=== PATIENT | female | born 1955 | race American Indian/Alaskan Native ===

== ENCOUNTER 2017-04-10 12:44 | Emergency (ER) | payer MEDICARE ==
[2017-04-10 12:58] VITALS: BP 134/60
--- NOTE | 2017-04-10 14:19 | Emergency Department Report ---
Chief Complaint: Neck Pain/Injury Stated Complaint: LUMP ON NECK Time Seen by Provider: 04/10/17 14:11 - HPI History of Present Illness: Patient is a 61-year-old Afro-[place] female who is presenting with a right neck swelling. Patient states that 2 days prior to today she was eating breakfast andthat she was having difficulty swallowing solids. She is able to swallow liquids fine. Patient denies any sore throat fever recent cough congestion. Patient also has not had any recent dental work. Patient states that she does feel some swelling and a nodule or "knot" on the right neck - ROS Review of Systems: Review of systems negative except for those elements in HPI - Exam Vital Signs: Vital Signs 04/10/17 12:55 Temperature 99.0 F Pulse Rate 99 H Respiratory 18 Rate Blood Pressure 134/60 O2 Sat by Pulse 98 Oximetry Physical Exam: Focused physical exam patient has some fullness in the submandibular space on the right side there is minimal tenderness of the sublingual space appears normal there is no swelling oropharynx appears clear MSE screening note: Focused history and physical exam performed. Due to findings the following was ordered: Patient will undergo a CT of the soft tissue neck to rule out abscess versus lymphadenopathy versus hematoma versus glandular infection ED Disposition for MSE Condition: Stable Referrals: MONTY TAYLOR MD [Primary Care Provider] - 3-5 Days
[2017-04-10 15:02] LABS: Basophils % (Auto) 0.7 % (0.0-1.8); Eosinophils % (Auto) 2.8 % (0.0-4.3); Hematocrit 35.1 % (30.3-42.9); Hemoglobin 11.6 gm/dl (10.1-14.3); Mean Corpuscular HGB Conc 33 % (30-34); Mean Corpuscular Hemoglobin 29 pg (28-32); Mean Corpuscular Volume 88 fl (79-97); Platelet Count 256 K/mm3 (140-440); Red Cell Distribution Width 15.2 % (13.2-15.2); White Blood Count 3.5 K/mm3 (4.5-11.0)
[2017-04-10 15:06] LABS: BUN/Creatinine Ratio 23; Blood Urea Nitrogen 18 mg/dL (7-17); Calcium 9.8 mg/dL (8.4-10.2); Carbon Dioxide 30 mmol/L (22-30); Glucose 198 mg/dL (65-100)
[2017-04-10 15:07] LABS: Anion Gap 17 mmol/L; Chloride 95.1 mmol/L (98-107); Potassium 3.8 mmol/L (3.6-5.0); Sodium 138 mmol/L (137-145)
--- NOTE | 2017-04-10 15:28 | Cat Scan Report ---
CT of the neck without contrast. History: Right submandibular swelling. Findings: The study of the neck is limited without intravenous contrast it is also limited due to patient's body habitus. The parotid and submandibular glands appear normal in size and configuration. A few small nodes are seen in the submandibular region bilaterally, all of which measure less than 1 cm in diameter. No evidence of cervical adenopathy is seen. There are no abnormal fluid collections or subcutaneous inflammatory changes. No significant bony abnormalities are seen. Impression: Negative study with above described technical limitations.
--- NOTE | 2017-04-10 16:42 | Emergency Department Report ---
ED General Adult HPI - General Chief complaint: Neck Pain/Injury Stated complaint: LUMP ON NECK Time Seen by Provider: 04/10/17 14:11 Source: patient Mode of arrival: Ambulatory Limitations: No Limitations - History of Present Illness Initial comments: Patient is a 61-year-old Afro-[place] female who is presenting with a right neck swelling. Patient states that 2 days prior to today she was eating breakfast andthat she was having difficulty swallowing solids. She is able to swallow liquids fine. Patient denies any sore throat fever recent cough congestion. Patient also has not had any recent dental work. Patient states that she does feel some swelling and a nodule or "knot" on the right neck - Related Data Previous Rx's Medication Instructions Recorded Last Taken Type Acetaminophen 1,000 mg PO QID PRN #30 tablet 04/10/17 Unknown Rx Clindamycin [Clindamycin CAP] 300 mg PO Q8H #30 cap 04/10/17 Unknown Rx Fluticasone [Flonase] 1 spray NS QDAY #1 bottle 04/10/17 Unknown Rx Allergies Allergy/AdvReac Type Severity Reaction Status Date / Time iodine Allergy Rash Verified 04/10/17 12:55 povidone-iodine Allergy Rash Verified 04/10/17 12:55 [From Betadine] soap [From Betadine] Allergy Rash Verified 04/10/17 12:55 ED Review of Systems ROS: Stated complaint: LUMP ON NECK Other details as noted in HPI Constitutional: denies: chills, fever Eyes: denies: eye pain, eye discharge, vision change ENT: denies: ear pain, throat pain, dental pain, hearing loss, congestion Respiratory: denies: cough, shortness of breath, wheezing Cardiovascular: denies: chest pain, palpitations Endocrine: no symptoms reported Gastrointestinal: denies: abdominal pain, nausea, diarrhea Genitourinary: denies: urgency, dysuria, discharge Musculoskeletal: denies: back pain, joint swelling, arthralgia Skin: denies: rash, lesions Neurological: denies: headache, weakness, paresthesias Psychiatric: denies: anxiety, depression Hematological/Lymphatic: denies: easy bleeding, easy bruising ED Past Medical Hx - Past Medical History Previous Medical History?: Yes Hx Hypertension: Yes Hx Diabetes: Yes Hx Asthma: Yes Additional medical history: thyroid - Surgical History Past Surgical History?: Yes Additional Surgical History: - Social History Smoking Status: Former Smoker Substance Use Type: None - Medications Home Medications: Home Medications Medication Instructions Recorded Confirmed Last Taken Type Acetaminophen 1,000 mg PO QID PRN #30 tablet 04/10/17 Unknown Rx Clindamycin [Clindamycin CAP] 300 mg PO Q8H #30 cap 04/10/17 Unknown Rx Fluticasone [Flonase] 1 spray NS QDAY #1 bottle 04/10/17 Unknown Rx ED Physical Exam - General Limitations: No Limitations General appearance: alert, in no apparent distress - Head Head exam: Present: atraumatic, normocephalic - Eye Eye exam: Present: normal appearance, PERRL, EOMI - ENT ENT exam: Present: normal orophraynx, mucous membranes moist, other (bilat maxillary sinus pain to palpation ). Absent: normal external ear exam - Expanded ENT Exam Expanded Ear exam: Present: normal external inspection TM/Canal exam: Erythema: Right TM, Left TM, Canal Tenderness: Right TM, Left TM Mouth exam: Present: normal external inspection. Absent: trismus, tongue normal Teeth exam: Present: normal inspection Throat exam: Negative: normal inspection, tonsillar erythema, tonsillomegaly, tonsillar exudate, R peritonsillar mass, L peritonsillar mass - Neck Neck exam: Present: tenderness, full ROM, lymphadenopathy. Absent: meningismus , thyromegaly - Expanded Neck Exam Expanded Neck exam: Present: tenderness (right submandibular lymph and tenderness no dental abscsess ). Absent: midline deformity, anterior neck swelling, thyroid mass, carotid bruit, tracheal deviation - Respiratory Respiratory exam: Present: normal lung sounds bilaterally. Absent: respiratory distress, wheezes, stridor, chest wall tenderness - Cardiovascular Cardiovascular Exam: Present: regular rate, normal rhythm, normal heart sounds. Absent: systolic murmur, diastolic murmur, rubs, gallop - GI/Abdominal GI/Abdominal exam: Present: soft, normal bowel sounds - Rectal Rectal exam: Present: deferred - Extremities Exam Extremities exam: Present: normal inspection - Back Exam Back exam: Present: normal inspection - Neurological Exam Neurological exam: Present: alert, oriented X3 - Psychiatric Psychiatric exam: Present: normal affect, normal mood - Skin Skin exam: Present: warm, dry, intact, normal color. Absent: rash ED Course Vital Signs 04/10/17 12:55 Temperature 99.0 F Pulse Rate 99 H Respiratory 18 Rate Blood Pressure 134/60 O2 Sat by Pulse 98 Oximetry ED Medical Decision Making - Lab Data Result diagrams: 04/10/17 14:27 04/10/17 14:27 - Radiology Data Radiology results: report reviewed, image reviewed no focal abscess or mass or malignancy - Medical Decision Making Patient is a 61-year-old Afro[place] female who is presenting with a right neck swelling. Patient states that 2 days prior to today she was eating breakfast andthat she was having difficulty swallowing solids. She is able to swallow liquids fine. Patient denies any sore throat fever recent cough congestion. Patient also has not had any recent dental work. Patient states that she does feel some swelling and a nodule or "knot" on the right neck exam: ent :Tms normal nose: mild turbinate edema erythema no polyps pharynx. mild erythema no exudate no lesions uvula midline no stridor neck : milder right submadibular lymph, CT: no abscess no mass plan: abx, tylenol and follow up with pcp upon return to , pt verbalized agreement and understanding of discharge. Critical care attestation.: If time is entered above; I have spent that time in minutes in the direct care of this critically ill patient, excluding procedure time. ED Disposition Clinical Impression: Sinusitis Qualifiers: Sinusitis location: maxillary Chronicity: acute Recurrence: non-recurrent Qualified Code(s): J01.00 - Acute maxillary sinusitis, unspecified Disposition: - TO HOME OR SELFCARE Is pt being admited?: No Does the pt Need Aspirin: No Condition: Good Instructions: Sinusitis (ED) Prescriptions: Acetaminophen 1,000 mg PO QID PRN #30 tablet PRN Reason: Pain Clindamycin [Clindamycin CAP] 300 mg PO Q8H #30 cap Fluticasone [Flonase] 1 spray NS QDAY #1 bottle Referrals: MONTY TAYLOR MD [Primary Care Provider] - 3-5 Days Forms: Work/School Release Form(ED) Time of Disposition: 16:53
== END 2017-04-10 17:02 | disposition home or self-care (01) ==
LOC: ED 12:44
DX: J01.00 Acute maxillary sinusitis, unspecified (principal); I10 Essential (primary) hypertension; E11.9 Type 2 diabetes mellitus without complications; J45.909 Unspecified asthma, uncomplicated; Z87.891 Personal history of nicotine dependence; Z91.041 Radiographic dye allergy status; Z91.09 Other allergy status, other than to drugs and biological substances
CPT/HCPCS: 36415; 70490; 80048; 85025; 99284